=== PATIENT | female | born 1955 | race African-American/Black ===

== ENCOUNTER 2017-05-15 08:49 | Emergency (ER) | payer OTHER | END 2017-05-15 11:04 | disposition home or self-care (01) | LOC: D.ER 08:49 | DX: M25.512 Pain in left shoulder (principal); M19.012 Primary osteoarthritis, left shoulder; I10 Essential (primary) hypertension; E11.9 Type 2 diabetes mellitus without complications ==

== ENCOUNTER 2017-12-22 20:54 | Emergency (ER) | payer SELFPAY ==
[2017-12-22 21:59] LABS: APPEARANCE CLEAR (CLEAR); BILIRUBIN NEGATIVE (NEGATIVE); COLOR YELLOW (YELLOW); GLUCOSE 50 mg/dL (NEGATIVE); KETONE NEGATIVE (NEGATIVE); NITRITE NEGATIVE (NEGATIVE); PROTEIN NEGATIVE (NEGATIVE); SPECIFIC GRAVITY 1.015 (1.005-1.020); UROBILINOGEN NORMAL (NORMAL)
== END 2017-12-22 22:37 | disposition home or self-care (01) ==
LOC: D.ER 20:54
PROVIDERS: Nurse Practitioner Family
DX: M54.5 Low back pain (principal); K08.89 Other specified disorders of teeth and supporting structures; E11.9 Type 2 diabetes mellitus without complications; I10 Essential (primary) hypertension